=== PATIENT | male | born 1960 | race Caucasian/White ===

== ENCOUNTER 2018-05-10 11:26 | Emergency (ER) | payer MEDICARE, MEDICAID ==
[~2018-05-10] VITALS: Ht 177.8 cm; Wt 77.3 kg
[~2018-05-10 11:26] MED LIST: AMLO-512 PO; DOCU-119 PO; FINA5TAB41 PO; FURO20TA4 PO; INSLAN SQ; LISI40TA4 PO; LORA0.5T2 PO; METH5TAB2 PO; PROP20TA7 PO; SPIR100T5 PO; [UNRECOGNIZED DRUG - REMARK] TP
[2018-05-10 12:22] VITALS: BP 160/75
== END 2018-05-10 14:02 | disposition left against medical advice (07) ==
LOC: EMS 11:28
DX: R44.1 Visual hallucinations (principal); Z53.21 Procedure and treatment not carried out due to patient leaving prior to being seen by health care provider